=== PATIENT | female | born 1985 ===

== ENCOUNTER 2017-05-10 15:30 | Inpatient (IN) | payer OTHER ==
[~2017-05-10] VITALS: Ht 157.5 cm; Wt 65.8 kg
[~2017-05-10 15:30] MED LIST: COLACE100 MG PO
[2017-05-26] MEDS ORDERED: PRENATAL 19 TA1 EAC1 PO (10:07)
[2017-05-28] MEDS ORDERED: DOCUSATE SODIU100 MG PO (08:14)
== END 2017-05-28 12:14 | disposition home or self-care (01) | DRG 775 ==
LOC: LDR 05-26 06:46 → OB/GYN 05-26 17:16
PROC: 0KQM0ZZ Repair Perineum Muscle, Open Approach (ICD-10-PCS; principal; 2017-05-26)
PROC: 10E0XZZ Delivery of Products of Conception, External Approach (ICD-10-PCS; 2017-05-26)
PROC: 4A1HXCZ Monitoring of Products of Conception, Cardiac Rate, External Approach (ICD-10-PCS; 2017-05-26)
PROC: 4A033R1 Measurement of Arterial Saturation, Peripheral, Percutaneous Approach (ICD-10-PCS; 2017-05-26)
DX: O70.1 Second degree perineal laceration during delivery (principal); Z37.0 Single live birth; Z3A.38 38 weeks gestation of pregnancy